=== PATIENT | female | born 1980 | race Caucasian/White ===

== ENCOUNTER 2017-04-04 07:10 | Emergency (ER) | payer OTHER ==
[2017-04-04 07:31] VITALS: RESP 16
[2017-04-04 08:13] VITALS: O2SAT 100
[2017-04-04 08:15] VITALS: BP 112/76; PULSE 84; TEMP 96.3
== END 2017-04-04 08:12 | disposition home or self-care (01) | DRG 918 ==
LOC: ED 07:10
DX: T54.2X1A Toxic effect of corrosive acids and acid-like substances, accidental (unintentional), initial encounter (principal); L24.4 Irritant contact dermatitis due to drugs in contact with skin; Y92.129 Unspecified place in nursing home as the place of occurrence of the external cause
CPT/HCPCS: 99283